=== PATIENT | female | born 1940 | race Caucasian/White ===

== ENCOUNTER 2017-12-18 13:40 | Observation (INO) | payer OTHER ==
[~2017-12-18] VITALS: Ht 167.6 cm; Wt 76.7 kg
[2017-12-18 15:29] LABS: HEMATOCRIT 40.3 % (36.0-46.0); HEMOGLOBIN 13.3 G/DL (11.9-15.5); MCH 29.8 PG (29.0-34.0); MCV 90.2 FL (83-99); PLATELET COUNT 247 K/uL (156-360); RBC DIS.WIDTH-CV 13.3 % (11.8-14.6); RBC DIS.WIDTH-SD 43.9 % (39-53); RED BLOOD COUNT 4.47 M/uL (3.80-5.20); WHITE BLOOD COUNT 7.4 K/uL (4.1-10.2)
[2017-12-18 15:38] LABS: CHLORIDE 104 mEq/L (99-109); SODIUM 140 mEq/L (136-147)
[2017-12-18 15:40] LABS: GLUCOSE 97 mg/dL (70-99)
[2017-12-18 15:44] LABS: GFR ESTIMATE (CALCULATED) 57 mL/min/
[2017-12-18 15:45] LABS: UREA NITROGEN (BUN) 29 mg/dL (9-23)
[2017-12-18 18:16] LABS: ALBUMIN 4.3 g/dL (3.2-4.8)
[2017-12-18 18:19] LABS: TOTAL PROTEIN 6.8 g/dL (6.4-8.3)
[2017-12-18 18:21] LABS: TOTAL BILIRUBIN 0.9 mg/dL (0.0-1.0)
[2017-12-18 18:22] LABS: ALKALINE PHOSPHATASE 92 IU/L (3-129)
[2017-12-18 18:24] LABS: AST (GOT) 64 IU/L (2-34)
[2017-12-18 18:25] LABS: ALT (GPT) 31 IU/L (3-49); DIRECT BILIRUBIN 0.4 mg/dL (0.0-0.3)
[2017-12-18 18:26] LABS: LIPASE 18 U/L (1.0-51.0)
[2017-12-18 18:30] LABS: APPEARANCE SL.HAZY ((CLEAR)); BILIRUBIN NEGATIVE; BLOOD MODERATE; COLOR AMBER ((YELLOW)); GLUCOSE (STRIP) NEGATIVE; KETONES 20; LEUKOCYTES MODERATE; NITRITE POSITIVE; PROTEIN (STRIP) 30; SPECIFIC GRAVITY 1.026 (1.000-1.030); UROBILINOGEN 0.2 MG/DL (0.2-1.0)
[2017-12-18 18:38] LABS: COCAINE NEGATIVE (150 ng/mL); PHENCYCLIDINE NEGATIVE (25 ng/mL); THC CANNABINOIDS NEGATIVE (50 ng/mL)
[2017-12-18 18:39] LABS: AMPHETAMINE NEGATIVE (500 ng/mL); BARBITURATES NEGATIVE (200 ng/mL); BENZODIAZEPINES NEGATIVE (150 ng/mL); BUPRENORPHINE NEGATIVE (10 ng/mL); METHADONE NEGATIVE (200 ng/mL); METHAMPHETAMINE NEGATIVE (500 ng/mL); OPIATES (MORPHINE) NEGATIVE (100 ng/mL); OXYCODONE NEGATIVE (100 ng/mL); PROPOXYPHENE NEGATIVE (300 ng/mL); TRICYCLIC ANTIDEPRESSANTS NEGATIVE (300 ng/mL)
[2017-12-18 18:51] LABS: BACTERIA 3+ /HPF; EPITHELIAL CELLS RARE /HPF; MUCUS 1+ /LPF; UCUL ADDED? YES; WHITE BLOOD CELLS 15-20 /HPF (0-5)
[2017-12-18] MEDS ORDERED: FUROSEMIDE20 MG PO (20:52)
[2017-12-18] MEDS ORDERED: CARVEDILOL3.125 MG PO (20:53)
[2017-12-18] MEDS ORDERED: LISINOPRIL5 MG PO (20:53)
[2017-12-18] MEDS ORDERED: CLOPIDOGREL75 MG PO (20:59)
[2017-12-18] MEDS ORDERED: EZETIMIBE10 MG PO (21:00)
[2017-12-19 00:42] VITALS: BP 139/60
[2017-12-19 06:08] LABS: BASOPHIL (%) 0.5 % (0-1); EOSINOPHIL (%) 3.5 % (0-5); EOSINOPHIL COUNT 0.2 K/uL (0-0.3); HEMATOCRIT 36.5 % (36.0-46.0); HEMOGLOBIN 11.8 G/DL (11.9-15.5); IMMATURE GRANULOCYTE (%) 0.2 % (0.0-0.7); LYMPHOCYTE (%) 33.6 % (15-42); LYMPHOCYTE COUNT 1.9 K/uL (1.0-2.8); MCH 29.3 PG (29.0-34.0); MCHC 32.3 G/DL (30.0-36.0); MCV 90.6 FL (83-99); MONOCYTE (%) 10.1 % (3-12); MONOCYTE COUNT 0.6 K/uL (0-0.8); NEUTROPHIL (%) 52.1 % (45-76); PLATELET COUNT 201 K/uL (156-360); RBC DIS.WIDTH-CV 13.2 % (11.8-14.6); RBC DIS.WIDTH-SD 43.8 % (39-53); RED BLOOD COUNT 4.03 M/uL (3.80-5.20); WHITE BLOOD COUNT 5.7 K/uL (4.1-10.2)
[2017-12-19 06:31] LABS: CHLORIDE 108 MEQ/L (99-109); GFR ESTIMATE (CALCULATED) 57 mL/min/; GLUCOSE 74 mg/dL (70-99); POTASSIUM 4.2 MEQ/L (3.7-5.4); SODIUM 143 MEQ/L (136-147); UREA NITROGEN (BUN) 27 mg/dL (9-23)
[2017-12-19 08:19] LABS: THYROTROPIN (TSH) 1.4 MIU/L (0.4-5.5)
[2017-12-19 09:15] VITALS: BP 132/88
[2017-12-19 18:03] VITALS: BP 132/88
[2017-12-19 23:57] VITALS: BP 122/58
[2017-12-20 06:01] LABS: HEMATOCRIT 39.9 % (36.0-46.0); HEMOGLOBIN 12.8 G/DL (11.9-15.5); MCH 29.4 PG (29.0-34.0); MCHC 32.1 G/DL (30.0-36.0); MCV 91.7 FL (83-99); PLATELET COUNT 213 K/uL (156-360); RBC DIS.WIDTH-CV 13.2 % (11.8-14.6); RED BLOOD COUNT 4.35 M/uL (3.80-5.20)
[2017-12-20 06:31] LABS: CHLORIDE 107 MEQ/L (99-109); GFR ESTIMATE (CALCULATED) 57 mL/min/; GLUCOSE 94 mg/dL (70-99); POTASSIUM 4.1 MEQ/L (3.7-5.4); SODIUM 141 MEQ/L (136-147); UREA NITROGEN (BUN) 23 mg/dL (9-23)
[2017-12-20 08:14] VITALS: BP 128/64
[2017-12-20] MEDS ORDERED: CEFDINIR300 MG PO (14:12)
[2017-12-20 16:00] VITALS: BP 126/66
== END 2017-12-20 16:42 ==
LOC: EME 13:40 → EDOF 23:32 → 5SOUTH 23:32 → ENRESERV 23:33 → EDOF 12-19 00:34 → 5SOUTH 12-19 00:35
PROVIDERS: Emergency Medicine; Internal Medicine; Nurse Practitioner Adult Health
DX: N39.0 Urinary tract infection, site not specified (principal); R44.0 Auditory hallucinations; G93.40 Encephalopathy, unspecified; I10 Essential (primary) hypertension; I25.10 Atherosclerotic heart disease of native coronary artery without angina pectoris; Z79.02 Long term (current) use of antithrombotics/antiplatelets; E78.5 Hyperlipidemia, unspecified; I25.2 Old myocardial infarction; Z95.0 Presence of cardiac pacemaker; Z79.82 Long term (current) use of aspirin
CPT/HCPCS: 70450; 70551; 71046; 80048; 80076; 81003; 82140; 82607; 83605; 83690; 84443; 85025; 85027; 87077; 87086; 87186; 90839; 93005; 99281; 99284; G0378; J0696; J1650

== ENCOUNTER 2017-12-20 15:39 | Inpatient (IN) | payer OTHER ==
[~2017-12-20] VITALS: Ht 165.1 cm; Wt 78.0 kg
[~2017-12-20 15:39] MED LIST: CARVEDILOL3.125 MG PO; CEFDINIR300 MG PO; CLOPIDOGREL75 MG PO; EZETIMIBE10 MG PO; FUROSEMIDE20 MG PO; LISINOPRIL5 MG PO
[2017-12-20 17:30] VITALS: BP 143/69
[2017-12-20 17:51] VITALS: BP 143/69
[2017-12-21 07:39] VITALS: BP 135/61
[2017-12-21 15:19] VITALS: BP 118/58
[2017-12-22 07:56] VITALS: BP 129/60
[2017-12-22 15:34] VITALS: BP 122/59
[2017-12-23 07:40] VITALS: BP 128/63
[2017-12-23 16:05] VITALS: BP 125/59
[2017-12-24 07:58] VITALS: BP 118/56
[2017-12-24 15:47] VITALS: BP 141/63
[2017-12-25 08:00] VITALS: BP 135/62
[2017-12-25 15:44] VITALS: BP 137/64
[2017-12-26 07:33] VITALS: BP 137/64
[2017-12-26] MEDS ORDERED: RISPERDAL2 MG PO (13:44)
[2017-12-26] MEDS ORDERED: CEFDINIR300 MG PO (13:44)
[2017-12-26] MEDS ORDERED: ASPIRIN81 M2 PO (13:45)
[2017-12-26 15:46] VITALS: BP 125/57
== END 2017-12-26 17:31 | disposition home or self-care (01) | DRG 885 ==
LOC: 1WEST 15:39 → ENRESERV 15:40 → 1WEST 16:51
DX: F20.9 Schizophrenia, unspecified (principal); F22 Delusional disorders; N39.0 Urinary tract infection, site not specified; F29 Unspecified psychosis not due to a substance or known physiological condition; E78.5 Hyperlipidemia, unspecified; I25.10 Atherosclerotic heart disease of native coronary artery without angina pectoris; I25.2 Old myocardial infarction; Z95.5 Presence of coronary angioplasty implant and graft; G31.84 Mild cognitive impairment of uncertain or unknown etiology
CPT/HCPCS: 97150 GO; 97166 GO